=== PATIENT | male | born 1955 | race Caucasian/White ===

== ENCOUNTER → 2023-07-18 | Outpatient (CLI) | payer MEDICARE, BC ==
--- NOTE | 2023-07-20 21:30 | CT ---
EXAMINATION TYPE: CT thoracic spine wo con DATE OF EXAM: 07/18/2023 COMPARISON: None HISTORY: compression fx T8 CT DLP: 1657 mGycm Automated exposure control for dose reduction was used. Contrast: None Technique: Axial images 3 mm thick sections. Reconstructed images in the coronal and sagittal planes. FINDINGS: Uncovertebral joint hypertrophy is contributing to foraminal stenosis in the lower cervical spine. Vertebral body heights appear preserved. The perceived compression deformity at T8 is not readily wendi arent. The anterior vertebral body height is smaller than the posterior vertebral body height. There is loss of disc height above and below T8 as well as additional mid thoracic vertebral levels. There is some kyphosis through this region. Anterior calcifications are present. Findings appear to be lunchroom monitor gene. No acute fractures identified. Peripelvic cyst may be present within the inferior pole left kidney. IMPRESSION: 1. THERE IS SOME MILD CHRONIC-APPEARING WEDGE DEFORMITY AT T8. AN ACUTE FRACTURE IS NOT IDENTIFIED BA SED ON THE CURRENT CT FINDINGS.
== END | disposition home or self-care (01) ==
LOC: RADCTMAIN 09:43
PROVIDERS: ATTEND Internal Medicine
DX: M48.54XA Collapsed vertebra, not elsewhere classified, thoracic region, initial encounter for fracture (principal)
CPT/HCPCS: 72128

== ENCOUNTER → 2023-07-18 | Outpatient (CLI) | payer MEDICARE, BC ==
--- NOTE | 2023-07-18 15:40 | CA ---
Stress Echo Report Ugo Sheikh Age: 68 Gender: M : 1955 Exam Date: 07/18/2023 10:33 Exam Location: [facility] Ht (in): 70 Wt (lb): 210 Ordering Physician: Geoff Ruiz DO Referring Physician: Geoff Ruiz DO Event Promotions Coordinator: Latrice Curry RDCS Technologist Procedure CPT: Indication: R94.31 ABNORMAL EKG ICD-9 Codes: Rhythm: Patient History: Chest pain Cardiac Medications: Medications in past 24 hours: Contrast: Stress Results Protocol: Carlos Total dose(mL): Exercise Duration (min:sec): 7;[address] Depression (mm): Angina Score: Pitts Score: METS: 8.5 Resting HR: 71 Resting BP: 140 / 76 Peak HR: 152 Peak BP: 196 / 94 Max Predicted HR: 152 100 % Max Predicted HR Target HR: 129 Double Product: [id number] Stress Summary: BP Response: Reason for Termination: Reached target heart rate or work-load Cardiac Symptoms: No Symptoms ECG Analysis Resting ECG: Stress ECG: Arrhythmia: Echo Analysis Resting Echo: Peak Echo Analysis: MEASUREMENTS (Male/Female) Normal Values CONCLUSIONS Patient underwent exercise stress echo with a Carlos protocol treadmill stress test. Patient exercised into Stage 3 for a total of 7 minutes and 9 seconds reaching a total of 8.5 METS. Patient's maximum heart rate was 152 which represented 100 % age-predicted maximum heart rate. Stress EKG portion: At baseline patient's EKG showed normal sinus rhythm, normal axis, no significant ST or T wave abnormalities. At peak exercise, EKG showed no significant change from baseline, rare PVC. Stress echo portion: 2-D echocardiogram was performed in the parasternal long, personal short, apical 2 and apical four-chamber views at rest, peak exercise and in recovery. At baseline, echocardiogram showed left ventricular ejection fraction 55% without wall motion abnormalities. With peak exercise, echocardiogram shows improvement in left ventricular ejection fraction, increase contractility, decrease in left ventricular end systolic dimension without wall motion abnormalities consistent with a normal response to exercise. Conclusions: 1. Normal EKG and echo response to exercise without evidence of inducible ischemia. 2. Fair exercise capacity. Dr. Duglas Sam DO (Electronically Signed) Final Date: 18 July 2023 15:39
== END | disposition home or self-care (01) ==
LOC: RADNMMAIN 09:39
PROVIDERS: ATTEND Internal Medicine
DX: R94.31 Abnormal electrocardiogram [ECG] [EKG] (principal); R07.9 Chest pain, unspecified
CPT/HCPCS: 93351

== ENCOUNTER → 2023-12-25 | Outpatient (CLI) | payer MEDICARE, BC ==
--- NOTE | 2023-12-25 08:19 | US ---
EXAMINATION TYPE: US Aorta Screening DATE OF EXAM: 12/25/2023 COMPARISON: NONE CLINICAL INDICATION: Male, 68 years old with history of Z13.6 SCREENING FOR AAA; TECHNIQUE: Multiple sonographic images of the abdominal aorta are obtained. FINDINGS: EXAM MEASUREMENTS: Abdominal Aorta: Proximal: 2.7 x 2.3 cm Mid: 2.2 x 2.1 cm Distal: 2.0 x 1.9 cm Bifurcation: Right Iliac: 1.0 x 1.0 cm Left Iliac: 1.1 x 1.0 cm CATERING DRIVER NOTES: Atherosclerotic throughout. No evidence of AAA IMPRESSION: No ultrasound evidence for abdominal aortic aneurysm.
== END | disposition home or self-care (01) ==
LOC: RADUSWWP 07:39
PROVIDERS: ATTEND Internal Medicine
DX: Z13.6 Encounter for screening for cardiovascular disorders (principal)
CPT/HCPCS: 76706